=== PATIENT | female | born 1975 | race Caucasian/White ===

== ENCOUNTER → 2016-08-27 | Outpatient (CLI) | payer OTHER ==
[2016-08-27 12:13] LABS: HEMOGLOBIN 14.1 g/dL (11.7-16.4)
[2016-08-27 12:48] LABS: ASPARTATE AMINO TRANSFERASE 15 U/L (15-37); BLOOD UREA NITROGEN 11 mg/dL (7-18); TOTAL IRON BINDING CAPACITY 321 mcg/dL (250-450)
== END | disposition home or self-care (01) ==
LOC: CFH 11:11
PROVIDERS: ATTEND Family Medicine
DX: E55.9 Vitamin D deficiency, unspecified (principal); R53.83 Other fatigue; R73.9 Hyperglycemia, unspecified; Z79.899 Other long term (current) drug therapy
CPT/HCPCS: 36415; 80053; 82306; 83540; 83550; 84439; 84443; 85025

== ENCOUNTER → 2017-05-13 | Outpatient (CLI) | payer OTHER | END | disposition home or self-care (01) | LOC: CFH 08:04 | PROVIDERS: ATTEND Specialist | DX: Z12.31 Encounter for screening mammogram for malignant neoplasm of breast (principal) | CPT/HCPCS: 77063; 77067 ==

== ENCOUNTER → 2018-06-13 | Outpatient (CLI) | payer OTHER | END | disposition home or self-care (01) | LOC: CFH 08:27 | PROVIDERS: ATTEND Family Medicine | DX: Z12.31 Encounter for screening mammogram for malignant neoplasm of breast (principal) | CPT/HCPCS: 77063; 77067 ==

== ENCOUNTER 2018-08-22 17:41 | Emergency (ER) | payer OTHER ==
[~2018-08-22] VITALS: Ht 167.6 cm; Wt 73.9 kg
[2018-08-22 17:49] VITALS: BP 120/66
[2018-08-22 18:17] LABS: MEAN CORPUSCULAR HGB CONC 34.5 g/dL (32.4-35.8); MEAN CORPUSCULAR VOLUME 92.6 fL (80-100); MEAN PLATELET VOLUME 7.9 fL (7.4-10.4); PLATELET COUNT 211 x10^3/uL (130-400); RED BLOOD COUNT 4.63 x10^6/uL (3.82-5.3); RED CELL DISTRIBUTION WIDTH 13.1 % (9.6-15.2)
[2018-08-22 18:29] LABS: ALBUMIN 4.3 g/dL (3.4-5.0); ANION GAP 7 mmol/L (5-15); CALCIUM 9.3 mg/dL (8.5-10.1); CHLORIDE 105 mmol/L (98-107)
[2018-08-22 18:35] LABS: ALANINE AMINOTRANSFERASE 92 U/L (12-78); ALKALINE PHOSPHATASE 63 U/L (45-117); BILIRUBIN,TOTAL 1.2 mg/dL (0.2-1.0); TOTAL PROTEIN 7.7 g/dL (6.4-8.2)
[2018-08-22 18:53] LABS: BASOPHILS # (AUTO) 0.05 x10^3/uL (0-0.1); BASOPHILS % (AUTO) 1 % (0-1); EOSINOPHILS # (AUTO) 0.05 x10^3/uL (0-0.4); EOSINOPHILS % (AUTO) 0 % (1-7); LYMPHOCYTES # (AUTO) 0.31 x10^3/uL (1-3.4); LYMPHOCYTES % (AUTO) 3 % (22-44); MD SCAN; MONOCYTES # (AUTO) 0.13 x10^3/uL (0.2-0.8); MONOCYTES % (AUTO) 1 % (2-9); NEUTROPHILS # (AUTO) 10.16 x10^3/uL (1.8-6.8); NEUTROPHILS % (AUTO) 95 % (42-75)
--- NOTE | 2018-08-22 19:24 | NUR ---
pt called to room from lobby
--- NOTE | 2018-08-22 19:34 | NUR ---
Pt c/o RUQ abd pain x3 hours. Pt denies N/V or dysuria
[2018-08-22] MEDS ORDERED: KETOROLAC 30 MG/1 ML ONE (19:36)
[2018-08-22] MEDS ORDERED: ONDANSETRON ODT 4 MG ONE (19:36)
[2018-08-22] MEDS ORDERED: MAALOX/HYOSCYAMINE/LIDOCAINE 45 ML BTL ONE (19:42)
[2018-08-22] MEDS ORDERED: ONDANSETRON ODT 4 MG PO ONE (20:00)
[2018-08-22] MEDS ORDERED: MAALOX/HYOSCYAMINE/LIDOCAINE 45 ML BTL PO ONE (20:00)
[2018-08-22] MEDS ORDERED: KETOROLAC 30 MG/1 ML IM ONE (20:00)
[2018-08-22 20:01] LABS: MICROSCOPIC NOT IND
[2018-08-22 20:11] LABS: CULTURE INDICATED? NO
== END 2018-08-22 19:59 | disposition home or self-care (01) ==
LOC: ED 19:53
DX: K29.00 Acute gastritis without bleeding (principal)
CPT/HCPCS: 36415; 76700; 80053; 81003; 83690; 84703; 85025; 96372; 99284; J1885; Q0162

== ENCOUNTER → 2018-08-29 | Outpatient (CLI) | payer OTHER ==
[2018-08-29 15:51] LABS: BASOPHILS # (AUTO) 0.04 x10^3/uL (0-0.1); BASOPHILS % (AUTO) 1 % (0-1); EOSINOPHILS # (AUTO) 0.29 x10^3/uL (0-0.4); EOSINOPHILS % (AUTO) 5 % (1-7); LYMPHOCYTES # (AUTO) 2.05 x10^3/uL (1-3.4); LYMPHOCYTES % (AUTO) 33 % (22-44); MD NO; MEAN CORPUSCULAR HEMOGLOBIN 32.2 pg (27.0-34.8); MEAN CORPUSCULAR HGB CONC 34.7 g/dL (32.4-35.8); MEAN CORPUSCULAR VOLUME 92.8 fL (80-100); MONOCYTES # (AUTO) 0.25 x10^3/uL (0.2-0.8); MONOCYTES % (AUTO) 4 % (2-9); NEUTROPHILS # (AUTO) 3.68 x10^3/uL (1.8-6.8); NEUTROPHILS % (AUTO) 58 % (42-75); PLATELET COUNT 267 x10^3/uL (130-400); RED BLOOD COUNT 4.42 x10^6/uL (3.82-5.3); RED CELL DISTRIBUTION WIDTH 13.1 % (9.6-15.2)
[2018-08-29 16:02] LABS: INTERNATIONAL NORMALIZED RATIO 0.98 (0.93-1.1); PROTHROMBIN TIME 10.3 Seconds (9.6-11.5)
[2018-08-29 16:04] LABS: ALANINE AMINOTRANSFERASE 37 U/L (12-78); ALBUMIN 4.3 g/dL (3.4-5.0); ANION GAP 5 mmol/L (5-15); CHLORIDE 110 mmol/L (98-107); CREATININE 0.89 mg/dL (0.55-1.02)
[2018-08-29 16:12] LABS: % IRON SATURATION 34 % (20-55); ALKALINE PHOSPHATASE 47 U/L (45-117); BILIRUBIN,TOTAL 0.7 mg/dL (0.2-1.0); IRON LEVEL 120 mcg/dL (50-170); TOTAL IRON BINDING CAPACITY 352 mcg/dL (250-450)
== END | disposition home or self-care (01) ==
LOC: CFH 11:20
PROVIDERS: ATTEND Nurse Practitioner
DX: R74.8 Abnormal levels of other serum enzymes (principal)
CPT/HCPCS: 36415; 80053; 82103; 82390; 82728; 83516; 83540; 83550; 84443; 85025; 85610; 86038; 86704; 86706; 86708; 86803; 87340

== ENCOUNTER → 2018-10-21 | Outpatient (CLI) | payer OTHER ==
[2018-10-21 12:54] LABS: CHOL/HDL RATIO 3.4; LDL/HDL RATIO 2.1 (0.5-3.0)
== END | disposition home or self-care (01) ==
LOC: LAB 12:01
PROVIDERS: ATTEND Family Medicine
DX: E78.00 Pure hypercholesterolemia, unspecified (principal)
CPT/HCPCS: 36415; 80061

== ENCOUNTER → 2018-11-16 | Outpatient (CLI) | payer OTHER | END | disposition home or self-care (01) | LOC: CFH 14:36 | PROVIDERS: ATTEND Family Medicine | DX: Z13.6 Encounter for screening for cardiovascular disorders (principal); Z82.49 Family history of ischemic heart disease and other diseases of the circulatory system | CPT/HCPCS: 75571 ==

== ENCOUNTER → 2019-07-17 | Outpatient (CLI) | payer OTHER ==
[2019-07-17 13:33] LABS: BASOPHILS # (AUTO) 0.03 x10^3/uL (0-0.1); BASOPHILS % (AUTO) 1 % (0-1); EOSINOPHILS # (AUTO) 0.26 x10^3/uL (0-0.4); EOSINOPHILS % (AUTO) 4 % (1-7); LYMPHOCYTES # (AUTO) 2.08 x10^3/uL (1-3.4); LYMPHOCYTES % (AUTO) 30 % (22-44); MD NO; MEAN CORPUSCULAR HEMOGLOBIN 31.9 pg (27.0-34.8); MEAN CORPUSCULAR VOLUME 93.8 fL (80-100); MEAN PLATELET VOLUME 9.2 fL (7.4-10.4); MONOCYTES # (AUTO) 0.29 x10^3/uL (0.2-0.8); MONOCYTES % (AUTO) 4 % (2-9); NEUTROPHILS % (AUTO) 61 % (42-75); PLATELET COUNT 239 x10^3/uL (130-400); RED BLOOD COUNT 4.69 x10^6/uL (3.82-5.3); RED CELL DISTRIBUTION WIDTH 12.8 % (9.6-15.2)
[2019-07-17 13:46] LABS: ALANINE AMINOTRANSFERASE 20 U/L (12-78); ANION GAP 8 mmol/L (5-15); CALCIUM 8.8 mg/dL (8.5-10.1); CHLORIDE 104 mmol/L (98-107); CREATININE 0.92 mg/dL (0.55-1.02); TRIGLYCERIDES 101 mg/dL (50-200); VLDL CHOLESTEROL 20 mg/dL (0-25)
[2019-07-17 13:57] LABS: ALKALINE PHOSPHATASE 48 U/L (45-117); BILIRUBIN,TOTAL 1.3 mg/dL (0.2-1.0); FREE T4 (FREE THYROXINE) 0.84 ng/dL (0.76-1.46); HDL CHOLESTEROL (DIRECT) 45 mg/dL (40-60); TOTAL PROTEIN 7.8 g/dL (6.4-8.2)
[2019-07-18 14:25] LABS: CHOL/HDL RATIO 3.8; CHOLESTEROL, TOTAL 170 mg/dL (140-239); HDL CHOL % 26 % (28-40); LDL CHOLESTEROL,CALCULATED 105 mg/dL (54-169); LDL/HDL RATIO 2.3 (0.5-3.0)
== END | disposition home or self-care (01) ==
LOC: CFH 08:10
PROVIDERS: ATTEND Specialist
DX: Z00.00 Encounter for general adult medical examination without abnormal findings (principal); N94.3 Premenstrual tension syndrome; R53.83 Other fatigue
CPT/HCPCS: 36415; 80053; 80061; 84439; 84443; 85025

== ENCOUNTER → 2019-07-28 | Outpatient (CLI) | payer OTHER ==
[2019-07-28 13:15] LABS: BILIRUBIN, DIRECT 0.1 mg/dL (0.1-0.2); BILIRUBIN,INDIRECT 0.9 mg/dL (0.0-2.0)
== END | disposition home or self-care (01) ==
LOC: CFH 08:00
PROVIDERS: ATTEND Nurse Practitioner
DX: E80.6 Other disorders of bilirubin metabolism (principal); R74.8 Abnormal levels of other serum enzymes
CPT/HCPCS: 36415; 82247; 82248

== ENCOUNTER → 2019-12-13 | Outpatient (CLI) | payer OTHER ==
[2019-12-13 12:44] LABS: BASOPHILS # (AUTO) 0.04 x10^3/uL (0-0.1); BASOPHILS % (AUTO) 1 % (0-1); EOSINOPHILS # (AUTO) 0.26 x10^3/uL (0-0.4); EOSINOPHILS % (AUTO) 5 % (1-7); LYMPHOCYTES # (AUTO) 1.57 x10^3/uL (1-3.4); LYMPHOCYTES % (AUTO) 31 % (22-44); MD NO; MEAN CORPUSCULAR HEMOGLOBIN 31.6 pg (27.0-34.8); MEAN CORPUSCULAR HGB CONC 33.6 g/dL (32.4-35.8); MEAN CORPUSCULAR VOLUME 93.8 fL (80-100); MEAN PLATELET VOLUME 8.8 fL (7.4-10.4); MONOCYTES # (AUTO) 0.26 x10^3/uL (0.2-0.8); MONOCYTES % (AUTO) 5 % (2-9); NEUTROPHILS # (AUTO) 3.03 x10^3/uL (1.8-6.8); NEUTROPHILS % (AUTO) 59 % (42-75); PLATELET COUNT 250 x10^3/uL (130-400); RED BLOOD COUNT 4.81 x10^6/uL (3.82-5.3); RED CELL DISTRIBUTION WIDTH 12.9 % (9.6-15.2)
[2019-12-13 13:02] LABS: CHLORIDE 111 mmol/L (98-107)
[2019-12-13 13:12] LABS: ALANINE AMINOTRANSFERASE 19 U/L (12-78); ALBUMIN 4.3 g/dL (3.4-5.0); ALKALINE PHOSPHATASE 53 U/L (45-117); ANION GAP 7 mmol/L (5-15); CALCIUM 9.4 mg/dL (8.5-10.1); CHOL/HDL RATIO 4.5; CHOLESTEROL, TOTAL 194 mg/dL (140-239); CREATININE 1.07 mg/dL (0.55-1.02); HDL CHOL % 22 % (28-40); HDL CHOLESTEROL (DIRECT) 43 mg/dL (40-60); LDL CHOLESTEROL,CALCULATED 127 mg/dL (54-169); TOTAL PROTEIN 7.9 g/dL (6.4-8.2); TRIGLYCERIDES 120 mg/dL (50-200); VLDL CHOLESTEROL 24 mg/dL (0-25)
== END | disposition home or self-care (01) ==
LOC: CFH 07:03
PROVIDERS: ATTEND Family Medicine
DX: Z00.00 Encounter for general adult medical examination without abnormal findings (principal)
CPT/HCPCS: 36415; 80053; 80061; 85025

== ENCOUNTER → 2020-07-11 | Outpatient (CLI) | payer OTHER | END | disposition home or self-care (01) | LOC: CFH 10:43 | PROVIDERS: ATTEND Family Medicine | DX: Z12.31 Encounter for screening mammogram for malignant neoplasm of breast (principal) | CPT/HCPCS: 77063; 77067 ==